=== PATIENT | male | born 1985 | race Caucasian/White ===

== ENCOUNTER 2020-02-15 04:51 | Day surgery (SDC) | payer OTHER ==
[2020-02-12 18:01] VITALS: BMI 34.4
--- OUTSIDE RECORDS SUMMARY | 2020-02-15 04:55 | XMS ---
:1985 Author Organization [facility] Support Name Relationship Address Phone RADHA EDWARDS PE Unavailable [address] [place] [address] TOM CURIEL MOTHER [address] [place] [address] Re-disclosure Warning The records that you are about to access may contain information from federally- assisted alcohol or drug abuse programs. If such information is present, then the following federally mandated warning applies: This information has been disclosed to you from records protected by federal confidentiality rules (42 CFR part 2). The federal rules prohibit you from making any further disclosure of this information unless further disclosure is expressly permitted by the written consent of the person to whom it pertains or as otherwise permitted by 42 CFR part 2. A general authorization for the release of medical or other information is NOT sufficient for this purpose. The Federal rules restrict any use of the information to criminally investigate or prosecute any alcohol or drug abuse patient.The records that you are about to access may contain highly sensitive health information, the redisclosure of which is protected by Article 27-F of the [facility] Public Health law. If you continue you may haveaccess to information: Regarding HIV / AIDS; Provided by facilities licensed or operated by the [facility] Office of Mental Health; or Provided by the [facility] Office for People With Developmental Disabilities. If such information is present, then the following [facility] mandated warning applies: This information has been disclosed to you from confidential records which are protected by state law. State law prohibits you from making any further disclosure of this information without the specific written consent of the person to whom it pertains, or as otherwise permitted by law. Any unauthorized further disclosure in violation of state law may result in a fine or residential sentence or both. A general authorization for the release of medical or other information is NOT sufficient authorization for further disclosure. Insurance Providers Payer name Policy type Policy ID Covered Covered republican's Policy P alfredo / Coverage republican ID relationship to G[employer] Inf ormation type gastelum [place] [id number] HEALTH NON CAP [place] [id number] 300 HEALTH NON CAP
[2020-02-15] MEDS ORDERED: PROPOFOL 20 ML ONE ×2 (12:23)
[2020-02-15] MEDS ORDERED: fentaNYL CITRATE 250 MCG/5 ML VIAL ONE (12:23)
[2020-02-15] MEDS ORDERED: MIDAZOLAM HCL 2 MG/2 ML SINGLE DOSE VIAL ONE (12:23)
[2020-02-15] MEDS ORDERED: ceFAZolin SODIUM 1 GM VIAL IVPB ONE (12:56)
[2020-02-15] MEDS ORDERED: LIDOCAINE HCL 1%, 10 MG/ML (20ML VIAL) INF ONE ×2 (13:09)
[2020-02-15] MEDS ORDERED: oxyCODONE HCL 5 MG TABLET PO PRN ×2 (13:28→13:38)
[2020-02-15] MEDS ORDERED: DEXTROSE 5%-0.45% SALINE 1,000 ML IV SCH (13:30)
--- NOTE | 2020-02-15 13:30 | OP ---
Operative Note - Note: Operative Date: 02/15/20 Pre-Operative Diagnosis: rt testis mass Operation: rt rad orchiectomy Post-Operative Diagnosis: Same as Pre-op Surgeon: Jose Miguel Bowling Anesthesia: General Specimens Removed: rt testis w cord Estimated Blood Loss (mls): 2 Operative Report Dictated: Yes
[2020-02-15] MEDS ORDERED: KETOROLAC TROMETHAMINE 30 MG/1 ML VIAL ONE (13:32)
[2020-02-15] MEDS ORDERED: DEXAMETHASONE SOD PHOSPHATE 4 MG/1 ML VIAL ONE (13:33)
[2020-02-15] MEDS ORDERED: ceFAZolin SODIUM 1 GM VIAL ONE ×2 (13:33)
[2020-02-15] MEDS ORDERED: ONDANSETRON 4 MG/2 ML VIAL IVPUSH PRN (13:38)
[2020-02-15] MEDS ORDERED: PROMETHAZINE HCL 25 MG/1 ML VIAL IVPUSH PRN (13:38)
[2020-02-15 17:20] VITALS: BP 125/69; PULSE 84; TEMP 97.4
--- NOTE | 2020-02-15 23:26 | OP ---
DATE OF OPERATION: 02/15/2020 PREOPERATIVE DIAGNOSIS: Right testicular mass. POSTOPERATIVE DIAGNOSIS: Right testicular mass. PROCEDURE: Right radical orchiectomy. SURGEON: Amanda Herzog MD. INDICATION: Patient is a 34-year-old male with firm right scrotal mass and elevated alpha-fetoprotein. After reviewing treatment options, he elected to undergo radical orchiectomy. Risks, benefits, and alternatives discussed at length, as well as potential risks if this is a benign process. Patient elected to undergo procedure. DESCRIPTION OF PROCEDURE: After informed consent was obtained, patient was cardiac monitors and general anesthesia established. The groin was prepped and draped in standard supine position. A 4-cm right groin incision was created from the area of the interpubic region overlying the area of the external ring. The skin was incised with a 15-blade down through the Chela fascia until the external oblique was identified. The spermatic cord was then encircled with Earleton drain tightly and clamped, and testicle was delivered. A firm mass was palpable on the testicle and attention was turned to the suture ligation of the cord. The cord was suture ligated with number 1 Vicryl and 0 silk, and the Vicryl tie was kept alone, and then the whole specimen testicle with lengthy spermatic cord was sent to pathology for analysis. The secured remainder of the cord in the inguinal canal was left no evidence of any active bleeding prior to wound closure. The Chela fascia was reapproximated with 3-0 chromic and skin was reapproximated with running 4-0 Monocryl followed by Dermabond. Dry sterile dressing was then placed. The patient was awoken from anesthesia and transferred to recovery room in stable condition. There were no complications. Estimated blood loss was minimal. AMANDA HERZOG M.D. [id number]
--- NOTE | 2020-02-23 16:15 | PATH ---
Surgical Pathology Report Patient Name: JEANETTE CURIEL [facility]. Rec. #: [id number] /Age/Gender: 1985 (Age: 34) / M Account: [id number] Location: [facility] SURGICAL Taken: 02/15/2020 Received: 02/15/2020 Reported: 02/23/2020 Physicians: Jose Miguel Bowling M.D. 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 TWO FOCI WHICH MEASURES 2.1 CM (GROSS MEASUREMENT) AND 3 MM (MICROSCOPIC MEASUREMENT). GERM CELL NEOPLASIA IN SITU (GCNIS) PRESENT. LYMPHOVASCULAR INVASION IDENTIFIED. RETE TESTIS IS INVOLVED BY GCNIS. EPIDIDYMIS AND HILAR TISSUE ARE UNINVOLVED. SURGICAL/SPERMATIC CORD MARGIN IS NEGATIVE. AJCC STAGING (2018): pT2(m) pNx S1. SEE SUMMARY BELOW. SEE COMMENT. Comment: Two foci of tumor are present. The main tumor mass is comprised of embryonal (solid, glandular, and papillary patterns) and post pubertal type yolk sac tumor (alveolar and myxoid patterns). The second (satellite) microscopic focus is comprised of yolk sac tumor (glandular pattern). Immunohistochemical stains performed at [facility] [place] ([id number] and [id number], blocks 2,4,7) and interpreted at [facility] show the embryonal carcinoma component is positive for CD30, D2-40 (focal), and OCT3/4. Yolk sac tumor component is positive for AFP, and Glypican-3. Occasional syncytiotrophoblasts are highlighted by HCG and seen admixed with embryonal carcinoma. AE1/3 is positive in all components including GCNIS. GCNIS is highlighted by OCT3/4, CD117, and D2-40. Overall histomorphology and immunophenotype support the diagnosis. Case seen in intradepartmental review with consensus on diagnosis. Findings discussed with Dr. Iniguez, 02/19/20. Positive and negative controls (internal if applicable) show appropriate results. Comments TESTIS: Radical Orchiectomy (pTNM, AJCC 8th Edition) Specimen Laterality _X_ Right Tumor Focality _X_ Multifocal Tumor Size Greatest dimension of main tumor mass (centimeters): 2.1 cm and 3 mm Histologic Type _X__ Mixed germ cell tumor _X__ Embryonal carcinoma (specify percentage): 70% _X__ Yolk sac tumor, postpubertal type (specify percentage): 30% Tumor Extension _X_ Tumor limited to testis Margins Spermatic Cord Margin _X_ Uninvolved by tumor Lymphovascular Invasion _X_ Present Regional Lymph Nodes _X_ No lymph nodes submitted or found Pathologic Stage Classification (pTNM, AJCC 8th Edition) TNM Descriptors _X_ m (multiple) Primary Tumor (pT) _X__ pT2: Tumor limited to testis (including rete testis invasion) with lymphovascular invasion OR Tumor invading hilar soft tissue or epididymis or penetrating visceral mesothelial layer covering the external surface of tunica albuginea with or without lymphovascular invasion Regional Lymph Nodes (pN) _X_ pNX: Regional lymph node cannot be assessed Pre-Orchiectomy Serum Tumor Markers _X__ Alpha-fetoprotein (AFP) elevation _X__ Beta subunit of human chorionic gonadotropin (b-hCG) elevation Post-Orchiectomy Serum Tumor Markers _X__ Unknown Serum Tumor Markers (S) LDH HCG (mIU/mL) AFP (ng/mL) _X_ S1: <1.5 X N# and <5,000 and <1,000 Additional Pathologic Findings _X__ Germ cell neoplasia in situ (GCNIS) Electronically Signed Stefany Vallecillo M.D. Gross Description Reviewed in formalin labeled "right testicle," is a 54 g orchiectomy specimen including a 4.5 x 2.8 x 2.8 cm testis with an attached 4.5 x 1.2 x 1.0 cm epididymis and a 6.5 cm in length attached spermatic cord. Sectioning reveals a 2.1 x 1.1 x 1.0 cm levy/red, heterogeneous, well-defined mass. The mass focally abuts the tunica albuginea but does not appear to invade through it. The remaining testicular parenchyma is unremarkable. The mass does not appear to involve the epididymis or the spermatic cord. Telegraph Repeater Mechanic sections are submitted in 8 cassettes as follows: 1-spermatic cord margin of resection; 2-full face section of mass with surrounding normal testicular parenchyma, epididymis and inked tunica vaginalis; 1-0-qvrnginbu of mass (each with surrounding normal testicular parenchyma, epididymis and inked tunica vaginalis); 5-uninvolved normal testicular parenchyma; 6-uninvolved normal epididymis; 7-uninvolved rete testis; 8-uninvolved additional section of spermatic cord. Additional cassettes are submitted as follows: 8-66-[id number] area of rete testis; 11-fibrotic area of testicular parenchyma. 02/16/2020 [facility]02/16/2020
== END 2020-02-15 16:50 | disposition home or self-care (01) ==
LOC: JASU-SURG 04:51
PROVIDERS: ATTEND Urology
PROC: 0VTJ0ZZ Resection of Right Epididymis, Open Approach (ICD-10-PCS; 2020-02-15)
PROC: 0VBF0ZZ Excision of Right Spermatic Cord, Open Approach (ICD-10-PCS; 2020-02-15)
PROC: 0VT90ZZ Resection of Right Testis, Open Approach (ICD-10-PCS; principal; 2020-02-15 12:00)
DX: C62.11 Malignant neoplasm of descended right testis (principal)
CPT/HCPCS: 88309-TC; 94760